=== PATIENT | male | born 1970 | race Caucasian/White ===

== ENCOUNTER 2017-01-21 00:08 | Emergency (ER) | payer OTHER, BC ==
[~2017-01-21] VITALS: Ht 188 cm; Wt 82.3 kg
[~2017-01-21 00:08] MED LIST: NOHOMEMEDS
[2017-01-21] MEDS ORDERED: PERCOCET 5/31 TABLET PO (01:29)
[2017-01-21 02:14] VITALS: BP 138/91
== END 2017-01-21 02:14 | disposition home or self-care (01) ==
LOC: EME 00:08
DX: S50.312A Abrasion of left elbow, initial encounter (principal); S80.212A Abrasion, left knee, initial encounter; S60.512A Abrasion of left hand, initial encounter; S60.511A Abrasion of right hand, initial encounter; V20.0XXA Motorcycle driver injured in collision with pedestrian or animal in nontraffic accident, initial encounter
CPT/HCPCS: 73080; 99281; 99284